=== PATIENT | male | born 1965 | race Caucasian/White ===

== ENCOUNTER 2017-01-12 06:09 | Inpatient (IN) | payer OTHER ==
[2017-01-07 16:41] VITALS: BMI 29.0
[~2017-01-12 06:09] MED LIST: ROPIVICAINE 0.2%/MORPH PF/KETOROLAC - 51ML DISP.SYRINGE IA ONE; VANCOMYCIN 1,000 MG VIAL (RESTRICTED TO ID ONLY) IVPB ONE
[2017-01-12] MEDS ORDERED: ROPIVICAINE 0.2%/MORPH PF/KETOROLAC - 51ML DISP.SYRINGE IA ONE ×3 (06:32→11:43)
[2017-01-12] MEDS ORDERED: TRANEXAMIC ACID 1000 MG/10 ML VIAL IVPUSH ONE ×2 (06:32→11:36)
[2017-01-12] MEDS ORDERED: CEFAZOLIN 2 GM in DEXTROSE 5%-WATER - 50 ML IVPB ONE (06:32)
[2017-01-12] MEDS ORDERED: VANCOMYCIN 1,000 MG VIAL (RESTRICTED TO ID ONLY) ONE (07:17)
[2017-01-12] MEDS ORDERED: ceFAZolin SODIUM 1 GM VIAL ONE ×2 (07:17→09:08)
--- NOTE | 2017-01-12 07:44 | HP ---
Admitting History and Physical - Admission Chief Complaint: left hip osteoarthritis x years History of Present Illness: 51 year old male with longstanding history of left hip osteoarthritis. Patient complains of pain, limited ROM, difficulty ambulating and difficulty with ADLs. Patient has failed conservative treatments including PO medication, activity modification and exercise program. At this point, patient would like to proceed with a left total hip arthroplasty (MAKOplasty). History Source: Patient - Past Surgical History Additional Past Surgical History: See written H&P - Advance Directives Advance Directives: Yes: Living Will, Health Care Proxy - Smoking History Smoking history: Never smoked - Alcohol/Substance Use Hx Alcohol Use: Yes (1-2/WEEK) Home Medications - Allergies Allergies/Adverse Reactions: Allergies Allergy/AdvReac Type Severity Reaction Status Date / Time No Known Allergies Allergy Verified 01/07/17 16:24 - Home Medications Home Medications: Ambulatory Orders Calcium Carbonate [Calcium] 500 mg PO DAILY 01/07/17 Multivitamins [Tab-A-Vit -] 1 tab PO DAILY 01/07/17 Review of Systems - Review of Systems Musculoskeletal: reports: Decreased ROM (Left hip), Joint Pain (left hip) Physical Examination Vital Signs: Vital Signs Temperature 97.6 F 01/12/17 06:56 Pulse Rate 60 01/12/17 06:56 Respiratory Rate 16 01/12/17 06:56 Blood Pressure 111/84 01/12/17 06:56 O2 Sat by Pulse Oximetry (%) 99 01/12/17 06:56 Constitutional: Yes: Well Nourished, No Distress Eyes: Yes: Conjunctiva Clear HENT: Yes: Atraumatic, Normocephalic Neck: Yes: Supple Cardiovascular: Yes: Regular Rate and Rhythm Respiratory: Yes: Regular Gastrointestinal: Yes: Soft ...Rectal Exam: Yes: Deferred Musculoskeletal: Yes: Joint Stiffness (left hip) Assessment/Plan 51 year old male with longstanding left hip osteoarthritis. Patient is limited in ambulation and ADLs. Continued pain and limited mobility despite conservative treatment. Proceed with a left total hip arthroplasty (MAKOplasty).
[2017-01-12] MEDS: CELECOXIB 200 MG CAPSULE PO ONE (07:55)
[2017-01-12] MEDS: oxyCODONE HCL 10 MG SUSTAINED ACTING TABLET PO ONE (07:55)
[2017-01-12] MEDS: GABAPENTIN 300 MG CAPSULE (FP) PO ONE (07:55)
[2017-01-12] MEDS ORDERED: DEXAMETHASONE SOD PHOSPHATE/PF 10 MG/ML SDV ONE (08:20)
[2017-01-12] MEDS ORDERED: MIDAZOLAM HCL 2 MG/2 ML SINGLE DOSE VIAL ONE ×2 (08:20→08:40)
[2017-01-12] MEDS ORDERED: ROPIVACAINE HCL 0.5% 30ML VIAL ONE (08:20)
[2017-01-12] MEDS ORDERED: SODIUM CHLORIDE 0.9% P/F 10 ML VIAL IJ ONE (08:26)
[2017-01-12] MEDS ORDERED: oxyCODONE HCL 5 MG TABLET PO PRN (09:48)
[2017-01-12] MEDS ORDERED: ONDANSETRON 4 MG/2 ML VIAL IVPUSH PRN (09:57)
[2017-01-12] MEDS ORDERED: GABAPENTIN 300 MG CAPSULE (FP) PO SCH (10:00)
[2017-01-12] MEDS ORDERED: TRANEXAMIC ACID 1000 MG/10 ML VIAL IVPB ONE (11:30)
[2017-01-12] MEDS ORDERED: VANCOMYCIN 1,000 MG VIAL (RESTRICTED TO ID ONLY) IVPB ONE ×2 (11:31→11:35)
[2017-01-12] MEDS ORDERED: MAGNESIUM HYDROX 2400MG/30ML ORAL SUSPENSION 30 ML CUP PO PRN (12:54)
[2017-01-12] MEDS ORDERED: ONDANSETRON 4 MG/2 ML VIAL IVPB PRN (12:54)
[2017-01-12] MEDS ORDERED: MAG HYDROX/AL HYDROX/SIMETH 30 ML UNIT-DOSE CUP PO PRN (12:54)
--- NOTE | 2017-01-12 12:54 | OP ---
Operative Note - Note: Operative Date: 01/12/17 Pre-Operative Diagnosis: left hip OA Operation: left LUZ Post-Operative Diagnosis: Same as Pre-op Surgeon: Sammy Moscoso Ordnance Equipment Worker: Mona Mitchell Anesthesia: Spinal Estimated Blood Loss (mls): 400
[2017-01-12] MEDS ORDERED: KETOROLAC TROMETHAMINE 30 MG/1 ML VIAL IVPUSH SCH (13:00)
[2017-01-12] MEDS ORDERED: traMADol HCL 50 MG TABLET PO SCH (13:00)
[2017-01-12] MEDS ORDERED: LACTATED RINGERS SOLUTION 1,000 ML IV SCH (13:00)
[2017-01-12] MEDS: ACETAMINOPHEN 1000 MG/100 ML VIAL (NON FORMULARY) IVPB ONE (13:20)
[2017-01-12] MEDS: oxyCODONE HCL 5 MG TABLET PO PRN (15:37)
[2017-01-12] MEDS: CEFAZOLIN 2 GM/D5W 50 ML IVPB SCH (18:17)
[2017-01-12] MEDS: ACETAMINOPHEN 325 MG TABLET (FP) PO SCH (20:26)
[2017-01-12] MEDS: traMADol HCL 50 MG TABLET PO SCH (20:26)
[2017-01-12] MEDS: KETOROLAC TROMETHAMINE 30 MG/1 ML VIAL IVPUSH SCH (20:27)
[2017-01-12] MEDS: oxyCODONE HCL 10 MG SUSTAINED ACTING TABLET PO SCH (22:00)
[2017-01-12] MEDS: CELECOXIB 200 MG CAPSULE PO SCH (22:00)
[2017-01-12] MEDS: GABAPENTIN 300 MG CAPSULE (FP) PO SCH (22:00)
[2017-01-13] MEDS: ASCORBIC ACID 500 MG TABLET (FP) PO SCH ×3 (01:41→21:50)
[2017-01-13] MEDS: SENNOSIDES/DOCUSATE COMBO (SENNA PLUS) TABLET (UD) PO SCH ×3 (01:41→21:50)
[2017-01-13] MEDS: ACETAMINOPHEN 325 MG TABLET (FP) PO SCH ×4 (01:42→20:30)
[2017-01-13] MEDS: KETOROLAC TROMETHAMINE 30 MG/1 ML VIAL IVPUSH SCH ×2 (01:42→08:38)
[2017-01-13] MEDS: CEFAZOLIN 2 GM/D5W 50 ML IVPB SCH (01:42)
[2017-01-13] MEDS: traMADol HCL 50 MG TABLET PO SCH ×4 (02:00→20:30)
[2017-01-13 08:10] LABS: ANION GAP 6 (8-16); CALCIUM 8.9 mg/dl (8.4-10.2); CO2 28 mmol/L (22-28); CREATININE 0.7 mg/dl (0.6-1.3); GLUCOSE,RANDOM 109 mg/dl (74-106)
[2017-01-13 08:27] LABS: MCH 30.8 pg (25.7-33.7); MCHC 33.8 g/dl (32.0-35.9); MEAN CELL VOLUME 91.2 fl (80-96); MEAN PLT VOLUME 8.7 fl (7.5-11.1); PLATELET COUNT 154 K/MM3 (134-434); WHITE BLOOD COUNT 6.7 K/mm3 (4.0-10.8)
[2017-01-13] MEDS: ASPIRIN 325 MG TABLET PO SCH (08:40)
[2017-01-13] MEDS: MULTIVITAMINS (DAILY MVI) TABLET (FP) PO SCH (10:19)
[2017-01-13] MEDS: GABAPENTIN 300 MG CAPSULE (FP) PO SCH ×2 (10:19→21:51)
[2017-01-13] MEDS: CALCIUM (OYSTER SHELL) 500 MG TABLET (FP) PO SCH (10:20)
[2017-01-13] MEDS: PANTOPRAZOLE 40 MG TABLET (FP) PO SCH (10:20)
[2017-01-13] MEDS: CELECOXIB 200 MG CAPSULE PO SCH ×2 (10:20→21:50)
[2017-01-13] MEDS: oxyCODONE HCL 5 MG TABLET PO PRN (10:21)
[2017-01-13] MEDS: oxyCODONE HCL 10 MG SUSTAINED ACTING TABLET PO SCH ×2 (10:21→21:50)
--- NOTE | 2017-01-13 10:44 | PN ---
Progress Note (short form) - Note Progress Note: 51M POD1 s/p L THR under spinal anesthetics with nerve blocks for post operative pain management. Patient is doing well, states that pain is well controlled, does not report any anesthetic complications. Sensory and motor function is intact in bilateral lower extremities, tolerating PT well.
[2017-01-13] MEDS: LACTATED RINGERS SOLUTION 1,000 ML IV SCH ×2 (17:05→17:10)
[2017-01-13] MEDS: GABAPENTIN 300 MG CAPSULE (FP) PO ONE (17:08)
[2017-01-13] MEDS: CELECOXIB 200 MG CAPSULE PO ONE (17:08)
[2017-01-13] MEDS: oxyCODONE HCL 10 MG SUSTAINED ACTING TABLET PO ONE (17:09)
[2017-01-13] MEDS: ACETAMINOPHEN 1000 MG/100 ML VIAL (NON FORMULARY) IVPB ONE (17:10)
--- NOTE | 2017-01-13 20:47 | PN ---
Progress Note (short form) - Note Progress Note: Pt seen and examined. Doing very well. Walked 800+ feet today. AVSS Selected Entries 01/13/17 14:00 Temperature 98.7 F Pulse Rate 74 Respiratory 18 Rate Blood Pressure 104/67 O2 Sat by Pulse 97 Oximetry (%) Oxygen Delivery Room Air Method Laboratory Tests 01/13/17 01/13/17 07:41 07:41 WBC 6.7 Hgb 11.9 Hct 35.1 L Plt Count 154 Sodium 137 Potassium 4.2 Chloride 103 Carbon Dioxide 28 Anion Gap 6 L BUN 13 Creatinine 0.7 Random Glucose 109 H Calcium 8.9 Gen: NAD LLE: c/d/i, NVID A/P 51yo male POD#1 s/p L LUZ 1. PT/OOB 2. D/C tomorrow after PT
--- NOTE | 2017-01-13 20:52 | DS ---
Physical Examination Vital Signs: Vital Signs Temperature 98.7 F 01/13/17 14:00 Pulse Rate 74 01/13/17 14:00 Respiratory Rate 18 01/13/17 14:00 Blood Pressure 104/67 01/13/17 14:00 O2 Sat by Pulse Oximetry (%) 97 01/13/17 14:00 Labs: CBC, BMP 01/13/17 07:41 01/13/17 07:41 Discharge Summary Current Active Problems Osteoarthritis of left hip (Acute) Procedures: Principal: left LUZ Hospital Course: Admitted for elective surgery. Procedure performed without complications. Pt received postoperative antibiotic prophylaxis and DVT ppx. Ambulated with physical therapy. Stable for discharge home with outpatient followup. Condition: Stable - Instructions Diet, Activity, Other Instructions: Dr Moscoso - Hip Replacement Instructions Keep the Aquacel dressing on until removed by Dr. Msocoso in 10-14 days - it is antibacterial and waterproof and you can shower with it on. Call the office for a follow-up appointment with Dr. Moscoso in 10-14 days. Take one ENTERIC-COATED Aspirin 325mg daily for 6 weeks to prevent blood clots in your legs. Take one Pantoprazole 40mg daily for 6 weeks to protect against heartburn and ulcers. Take a multivitamin, extra vitamin C supplement, and stool softener daily. For pain: *Mild pain (1-3/10): Take 1 Tramadol tablet every 4 hours as needed. Moderate pain (4-6/10): Take 1 Tramadol tablet and 1 Percocet tablet every 4 hours as needed. Severe pain (7-10/10): Take 1 Tramadol tablet and 2 Percocet tablets every 4 hours as needed. Activity: You can put as much weight on the operative leg as you want. For the first 6 weeks, all you need to do is walk around the house, go up/down stairs, and sit down/get up. After 6 weeks when everything is healed (and bone has grown into the implant) you will be sent for more intensive outpatient physical therapy. Always use a walker or cane for balance and to prevent falls. Disposition: [facility]/HOME HEALTH CARE - Home Medications Comprehensive Discharge Medication List: Ambulatory Orders Calcium Carbonate [Calcium] 500 mg PO DAILY 01/07/17 Multivitamins [Multivit ([facility])] 1 tab PO DAILY 01/07/17 Ascorbic Acid [Vitamin C -] 500 mg PO BID tablet 01/13/17 Aspirin [ASA -] 325 mg PO DAILY@0800 tablet 01/13/17 Multivitamins [Multivit ([facility])] 1 tab PO DAILY tab 01/13/17 Oxycodone HCl/Acetaminophen [Percocet 5-325 mg Tablet] 1 - 2 tab PO Q4H PRN #60 tablet MDD 10 01/13/17 Pantoprazole Sodium [Protonix -] 40 mg PO DAILY #40 tab 01/13/17 Sennosides/Docusate Sodium [Pericolace -] 2 tablet PO BID tablet 01/13/17 Tramadol HCl [Ultram -] 50 mg PO Q4H PRN #90 tablet MDD 6 01/13/17
[2017-01-14] MEDS: ACETAMINOPHEN 325 MG TABLET (FP) PO SCH ×2 (01:17→07:54)
[2017-01-14] MEDS: traMADol HCL 50 MG TABLET PO SCH ×2 (01:18→07:54)
[2017-01-14 05:54] VITALS: BP 105/70; PULSE 73; TEMP 98
[2017-01-14] MEDS: ASPIRIN 325 MG TABLET PO SCH (07:54)
[2017-01-14 08:53] LABS: MCH 30.9 pg (25.7-33.7); MCHC 34.1 g/dl (32.0-35.9); MEAN CELL VOLUME 90.6 fl (80-96); MEAN PLT VOLUME 8.8 fl (7.5-11.1); PLATELET COUNT 147 K/MM3 (134-434); WHITE BLOOD COUNT 6.1 K/mm3 (4.0-10.8)
[2017-01-14 08:57] LABS: ANION GAP 2 (8-16); CALCIUM 8.4 mg/dl (8.4-10.2); CO2 31 mmol/L (22-28); CREATININE 0.7 mg/dl (0.6-1.3); GLUCOSE,RANDOM 94 mg/dl (74-106)
[2017-01-14] MEDS: GABAPENTIN 300 MG CAPSULE (FP) PO SCH (09:57)
[2017-01-14] MEDS: CELECOXIB 200 MG CAPSULE PO SCH (09:57)
[2017-01-14] MEDS: SENNOSIDES/DOCUSATE COMBO (SENNA PLUS) TABLET (UD) PO SCH (09:58)
[2017-01-14] MEDS: CALCIUM (OYSTER SHELL) 500 MG TABLET (FP) PO SCH (09:58)
[2017-01-14] MEDS: MULTIVITAMINS (DAILY MVI) TABLET (FP) PO SCH (09:58)
[2017-01-14] MEDS: PANTOPRAZOLE 40 MG TABLET (FP) PO SCH (09:59)
[2017-01-14] MEDS: ASCORBIC ACID 500 MG TABLET (FP) PO SCH (09:59)
[2017-01-14] MEDS: oxyCODONE HCL 5 MG TABLET PO PRN (09:59)
[2017-01-14] MEDS: oxyCODONE HCL 10 MG SUSTAINED ACTING TABLET PO SCH (10:00)
--- NOTE | 2017-01-14 14:41 | PATH ---
Surgical Pathology Report Patient Name: SABRINA ROCHE Med. Rec. #: [id number] /Age/Gender: 1965 (Age: 51) / M Account: [id number] Location: [facility] Taken: 01/12/2017 Received: 01/12/2017 Reported: 01/14/2017 Physicians: Sammy Moscoso M.D. Specimen(s) Received LEFT FEMORAL HEAD Clinical History Osteoarthritis left hip Final Diagnosis FEMORAL HEAD, LEFT, TOTAL HIP REPLACEMENT: DEGENERATIVE JOINT DISEASE. Electronically Signed Nan Morrison M.D. Gross Description Received in formalin, labeled "left femoral head," is a 5.5 x 5.5 x 5.0 cm. femoral head with a 0.7 cm in length portion of femoral neck attached. The margin of resection is smooth. There is a 4.8 cm greatest dimension area of eburnation present. The remaining articular surface is shook-yellow and diffusely granular and nodular. The underlying trabecular bone is yellow and hard. A development representative section is submitted in one cassette, following decalcification. 01/13/201701/13/2017
== END 2017-01-14 12:30 | disposition home health service (06) | DRG 301 ==
LOC: FM/S 06:09 → EDSTATUS 08:00 → FM/S 13:46
PROVIDERS: ADMIT Student in an Organized Health Care Education/Training Program; ATTEND Student in an Organized Health Care Education/Training Program
PROC: 0SRB0JZ Replacement of Left Hip Joint with Synthetic Substitute, Open Approach (ICD-10-PCS; principal; 2017-01-12 09:45)
DX: M16.12 Unilateral primary osteoarthritis, left hip (principal)
CPT/HCPCS: 36415; 73523-TC; 80048; 85027; 88304-TC; 88311-TC; 94010; 94760; 97116-GP; 97162-GP